=== PATIENT | male | born 1975 | race Two or more races ===

== ENCOUNTER 2021-09-30 14:08 | Emergency (ER) | payer SELFPAY ==
[~2021-09-30] VITALS: Ht 180.3 cm; Wt 95.3 kg
[2021-09-30 14:13] VITALS: BP 143/83
== END 2021-09-30 16:30 | disposition left against medical advice (07) ==
LOC: ER 14:08
DX: G89.29 Other chronic pain (principal); M54.9 Dorsalgia, unspecified; Z53.21 Procedure and treatment not carried out due to patient leaving prior to being seen by health care provider

== ENCOUNTER 2022-08-07 12:43 | Emergency (ER) | payer MEDICAID, OTHER ==
[~2022-08-07] VITALS: Ht 180.3 cm; Wt 90.0 kg
[2022-08-07] MEDS ORDERED: ACETAMINOPHEN 500 MG TAB PO ONE ×2 (13:30→16:47)
[2022-08-07] MEDS ORDERED: IBUPROFEN 600 MG TAB PO ONE ×2 (16:50→17:00)
[2022-08-07] MEDS ORDERED: HYDR-4902 PO (17:36)
[2022-08-07] MEDS ORDERED: IBUP600T28 PO (17:36)
[2022-08-07] MEDS ORDERED: HYDROcodone-ACET 5/325MG TAB PO ONE (17:45)
[2022-08-07 18:00] VITALS: BP 132/86
== END 2022-08-07 18:49 | disposition home or self-care (01) ==
LOC: ER 12:43
DX: S82.001A Unspecified fracture of right patella, initial encounter for closed fracture (principal); W18.39XA Other fall on same level, initial encounter; Y93.89 Activity, other specified; Y92.89 Other specified places as the place of occurrence of the external cause; Y99.8 Other external cause status
CPT/HCPCS: 29505; 73562